=== PATIENT | female | born 1950 | race Caucasian/White ===

== ENCOUNTER 2016-11-15 06:46 | Inpatient (IN) | payer MEDICARE ==
--- NOTE | 2016-11-15 08:38 | RAD ---
HISTORY: Rales left lung base COMPARISONS: None VIEWS: 1: frontal portable view of the chest at 8:16 AM FINDINGS: LINES AND TUBES: None. CARDIOMEDIASTINAL SILHOUETTE: The cardiomediastinal silhouette is normal for portable technique. PLEURA: The costophrenic angles are sharp. No pleural abnormalities are noted. LUNG PARENCHYMA: The lungs are clear. ABDOMEN: The upper abdomen is clear. There is no subphrenic gas. BONES AND SOFT TISSUES: The patient is status post median sternotomy. IMPRESSION: NO ACTIVE CARDIOPULMONARY DISEASE.
[2016-11-15 08:56] LABS: Hematocrit 34 % (35-47); Hemoglobin 11.3 g/dl (12.0-16.0); Mean Corpuscular HGB Conc 33 g/dl (31-36); Mean Corpuscular Hemoglobin 29 pg (27-31); Mean Corpuscular Volume 86 fL (80-97); Mean Platelet Volume 7 um3 (7.4-10.4); Red Blood Count 3.95 10^6/ul (4.0-5.4); Red Cell Distribution Width 14 % (10.5-15); White Blood Count 16.6 10^3/ul (3.5-10.8)
[2016-11-15 09:10] LABS: Albumin 2.8 g/dL (3.2-5.2); Calcium 8.3 mg/dL (8.6-10.3); EGFR Non-African American 100.3 (>60); Globulin 3.4 g/dL (2-4); Potassium 4.1 mmol/L (3.5-5.0); Total Bilirubin 0.6 mg/dL (0.2-1.0); Total Protein 6.2 g/dL (6.4-8.9)
[2016-11-15 09:11] LABS: Albumin 2.8 g/dL (3.2-5.2); Direct Bilirubin 0.2 mg/dL (0.03-0.18); Globulin 3.4 g/dL (2-4); Indirect Bilirubin 0.4 mg/dL (0.3-1.0); Total Bilirubin 0.6 mg/dL (0.2-1.0); Total Protein 6.2 g/dL (6.4-8.9)
[2016-11-15] MEDS ORDERED: NS 0.9% 1000 ML* 1,000 ML IV SCH (09:30)
--- NOTE | 2016-11-15 09:33 | RAD ---
HISTORY: Altered mental status COMPARISONS: None TECHNIQUE: Multiple contiguous axial CT scans were obtained of the head without intravenous contrast. FINDINGS: HEMORRHAGE/INFARCT: There is no hemorrhage or acute infarct. MASSES/SHIFT: There is no mass or shift. EXTRA-AXIAL SPACES: There are no extra-axial fluid collections. SULCI AND VENTRICLES: The sulci and ventricles are normal in size and position for the patient's stated age. CEREBRUM: There are no focal parenchymal abnormalities. BRAINSTEM: There are no focal parenchymal abnormalities. CEREBELLUM: There are no focal parenchymal abnormalities. VESSELS: The vessels are grossly normal. PARANASAL SINUSES: The paranasal sinuses are clear. ORBITS: The orbits are unremarkable. BONES AND SOFT TISSUE: No bone or soft tissue abnormalities are noted. OTHER: None IMPRESSION: NO ACUTE INTRACRANIAL PATHOLOGY.
--- NOTE | 2016-11-15 10:05 | RAD ---
HISTORY: Reported history of fracture, trauma trauma COMPARISONS: None relevant available at the time of dictation VIEWS: 4, Frontal, lateral, and oblique views of the right elbow FINDINGS: BONE DENSITY: There is diffuse osteopenia. BONES: There is no displaced fracture. JOINTS: There is no arthropathy. There is a small joint effusion. ALIGNMENT: There is no dislocation. SOFT TISSUES: Unremarkable. OTHER FINDINGS: None. IMPRESSION: 1. OSTEOPENIA. 2. SMALL JOINT EFFUSION. 3. WHILE THERE IS NO DISPLACED FRACTURE THE PRESENCE OF AN EFFUSION MAY INDICATE A RADIOGRAPHICALLY OCCULT FRACTURE. IF SYMPTOMS PERSIST, RECOMMEND REPEAT IMAGING
--- NOTE | 2016-11-15 10:06 | RAD ---
HISTORY: History of fracture, trauma, right leg COMPARISONS: None VIEWS: 4, Frontal and lateral views of the right foreleg FINDINGS: BONE DENSITY: There is diffuse osteopenia. BONES: There is a nondisplaced oblique fracture of the proximal tibial metadiaphysis. There is no appreciable articular extension. JOINTS: There is no arthropathy. ALIGNMENT: There is no dislocation. SOFT TISSUES: Unremarkable. OTHER FINDINGS: None. IMPRESSION: OSTEOPENIA. NONDISPLACED FRACTURE OF THE PROXIMAL TIBIA
--- NOTE | 2016-11-15 10:06 | RAD ---
HISTORY: Trauma, history of fracture COMPARISONS: None VIEWS: 4, Frontal and lateral views of the left foreleg FINDINGS: BONE DENSITY: There is diffuse osteopenia. BONES: There is a multiply comminuted fracture of the proximal tibia with extension to the tibial plateau laterally. JOINTS: There is chondrocalcinosis with moderate osteophytosis of the left knee. ALIGNMENT: There is no dislocation. SOFT TISSUES: Unremarkable. OTHER FINDINGS: None. IMPRESSION: OSTEOPENIA WITH A MULTIPLY COMMINUTED FRACTURE OF THE PROXIMAL TIBIA WITH EXTENSION TO THE LATERAL TIBIAL PLATEAU
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
[2016-11-15] MEDS: Morphine INJ* 2 MG/ML 1 ML SYRINGE (TWO MG - NEW SYRINGE VERSION) IV PRN ×3 (12:55→19:19)
[2016-11-15] MEDS: Nicotine PATCH 14 MG/24 HR* PATCH TRANSDERM SCH (12:59)
[2016-11-15] MEDS: Metoprolol Tartrate TAB* 25 MG PO SCH ×2 (13:10→21:31)
[2016-11-15] MEDS: FLUoxetine CAP* 20 MG PO SCH (13:10)
[2016-11-15] MEDS: Lactobacillus Acidophilu (GG)* 1 CAP CAP PO SCH (13:10)
[2016-11-15] MEDS: Baclofen TAB* 10 MG PO PRN (17:47)
[2016-11-15] MEDS: Nicotine Patch Removal NOTE PATCH OFF SCH (21:32)
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
[2016-11-16] MEDS: Baclofen TAB* 10 MG PO PRN ×2 (03:16→09:08)
[2016-11-16] MEDS: Omeprazole CAP* 20 MG PO SCH (05:35)
[2016-11-16] MEDS: Morphine INJ* 2 MG/ML 1 ML SYRINGE (TWO MG - NEW SYRINGE VERSION) IV PRN ×2 (05:36→08:27)
[2016-11-16 09:55] LABS: Hematocrit 32 % (35-47); Hemoglobin 10.7 g/dl (12.0-16.0); Mean Corpuscular HGB Conc 34 g/dl (31-36); Mean Corpuscular Hemoglobin 29 pg (27-31); Mean Corpuscular Volume 86 fL (80-97); Mean Platelet Volume 7 um3 (7.4-10.4); Red Blood Count 3.71 10^6/ul (4.0-5.4); Red Cell Distribution Width 13 % (10.5-15); White Blood Count 14.9 10^3/ul (3.5-10.8)
[2016-11-16 10:08] LABS: BUN/Creatinine Ratio 21.6 (8-20); Calcium 8.1 mg/dL (8.6-10.3); EGFR African American 225.4 (>60); EGFR Non-African American 175.3 (>60); Potassium 3.6 mmol/L (3.5-5.0)
[2016-11-16] MEDS: Nicotine PATCH 14 MG/24 HR* PATCH TRANSDERM SCH (10:39)
[2016-11-16] MEDS: FLUoxetine CAP* 20 MG PO SCH (10:39)
[2016-11-16] MEDS: Lactobacillus Acidophilu (GG)* 1 CAP CAP PO SCH (10:39)
[2016-11-16] MEDS: Metoprolol Tartrate TAB* 25 MG PO SCH ×2 (10:39→20:22)
[2016-11-16] MEDS: Morphine INJ* 4 MG/ML 1 ML CARPUJECT IV PRN ×4 (10:43→22:08)
[2016-11-16] MEDS ORDERED: oxyCODONE TAB* 5 MG TAB PO PRN (13:30)
[2016-11-16] MEDS: Diazepam TAB(*) 5 MG PO PRN (16:15)
--- NOTE | 2016-11-16 16:56 | PN ---
Subjective Date of Service: 11/16/16 Interval History: This is a 66 yo female who was transferred from [facility] after sustaining a fall resulting in bilateral tibial plateau fractures. Patient has a h/o alcoholism, CAD, COPD and anxiety. Dr Rivera has consulted on the case and has recommended non-operative management. Today, patient is struggling with pain control. The majority of her pain appears to be related to spasm in her upper legs. No specific withdrawal symptoms. Objective Active Medications: Diazepam (Valium Tab(*)) 5 mg PO Q8H PRN PRN Reason: SPASMS Last Admin: 11/16/16 16:15 Dose: 5 mg Fluoxetine HCl (Prozac Cap*) 20 mg PO DAILY [facility] Last Admin: 11/16/16 10:39 Dose: 20 mg Lactobacillus Rhamnosus (Culturelle*) 1 cap PO DAILY [facility] Last Admin: 11/16/16 10:39 Dose: 1 cap Metoprolol Tartrate (Lopressor Tab*) 12.5 mg PO Q12HR [facility] Last Admin: 11/16/16 10:39 Dose: 12.5 mg Morphine Sulfate (Morphine Inj (Syringe)*) 4 mg IV Q2H PRN PRN Reason: PAIN Nicotine (Nicotine Patch 14 Mg/24 Hr*) 1 patch TRANSDERM DAILY [facility] Last Admin: 11/16/16 10:39 Dose: 1 patch Omeprazole (Prilosec Cap*) 20 mg PO 0600 [facility] Last Admin: 11/16/16 05:35 Dose: 20 mg Oxycodone HCl (Roxycodone Tab*) 10 mg PO Q6H PRN PRN Reason: PAIN Pharmacy Profile Note (Nicotine Patch Removal Note*) 1 note PATCH OFF BEDTIME [facility] Last Admin: 11/15/16 21:32 Dose: 1 note Vital Signs: Temp Pulse Resp BP Pulse Ox 98.1 F 82 16 146/76 91 11/16/16 15:09 11/16/16 15:09 11/16/16 16:15 11/16/16 15:09 11/16/16 15:09 Oxygen Devices in Use Now: None Appearance: Uncomfortable appearing 66 yo female. Occasionally moaning. Accompanied by her daughter. Respiratory: Symmetrical Chest Expansion and Respiratory Effort, Clear to Auscultation Cardiovascular: NL Sounds; No Murmurs; No JVD, RRR Abdominal: NL Sounds; No Tenderness; No Distention Extremities: No Edema, - - bilateral knee immobilizers in place Skin: No Rash or Ulcers Neurological: Alert and Oriented x 3 Result Diagrams: 11/16/16 09:32 11/16/16 09:32 Assess/Plan/Problems-Billing Assessment: This is a 66 yo female with alcoholis, CAD, COPD and anxiety who presents after an acute fall with bilateral tibial plateau fractures. - Patient Problems (1) Tibial plateau fracture Comment: Bilateral and non-displaced Appreciate ortho consult which recommends no surgical intervention Patient will need to be NWB x 6 weeks Focus on pain control, Baclofen appears to be incompletely effective for spasm relief, will trial Valium which may also provide some improvement in her high level of anxiety accompanying her pain (2) Alcoholism Comment: No obvious signs of withdrawal apart from anxiety Will utilize Valium for spasm control, may also be helpful for any mild withdrawal symptoms (3) CAD (coronary artery disease) Comment: Asx Cont med management (4) COPD (chronic obstructive pulmonary disease) Comment: No acute exacerbation (5) Anxiety Comment: Appears to be contributing to her pain Trial use of Valium (6) Full code status (7) DVT prophylaxis Comment: Start SQ Lovenox Status and Disposition: Inpatient. Patient will require placement while NWB. CM and SW involved in dc planning process
[2016-11-16] MEDS: Enoxaparin(*) 40 MG/0.4 ML SYR SUBCUT SCH (18:16)
[2016-11-16] MEDS: oxyCODONE TAB* 5 MG TAB PO PRN (21:13)
[2016-11-16] MEDS: Nicotine Patch Removal NOTE PATCH OFF SCH (21:27)
[2016-11-17] MEDS: Diazepam TAB(*) 5 MG PO PRN ×3 (02:28→23:09)
[2016-11-17] MEDS: oxyCODONE TAB* 5 MG TAB PO PRN ×4 (05:41→20:06)
[2016-11-17] MEDS: Omeprazole CAP* 20 MG PO SCH (05:41)
[2016-11-17] MEDS: FLUoxetine CAP* 20 MG PO SCH (08:02)
[2016-11-17] MEDS: Lactobacillus Acidophilu (GG)* 1 CAP CAP PO SCH (08:02)
[2016-11-17] MEDS: Morphine INJ* 4 MG/ML 1 ML CARPUJECT IV PRN (08:02)
[2016-11-17] MEDS: Nicotine PATCH 14 MG/24 HR* PATCH TRANSDERM SCH (08:03)
--- NOTE | 2016-11-17 11:25 | PN ---
Subjective Date of Service: 11/17/16 Interval History: Patient's pain control has improved significantly today. Spasms have improved with use of Valium, but are still occasionally present in the lower legs and feet now. Little pain at the fracture site. Objective Active Medications: Diazepam (Valium Tab(*)) 5 mg PO Q8H PRN PRN Reason: SPASMS Last Admin: 11/17/16 02:28 Dose: 5 mg Enoxaparin Sodium (Lovenox(*)) 40 mg SUBCUT Q24H [facility] Last Admin: 11/16/16 18:16 Dose: 40 mg Fluoxetine HCl (Prozac Cap*) 20 mg PO DAILY [facility] Last Admin: 11/17/16 08:02 Dose: 20 mg Lactobacillus Rhamnosus (Culturelle*) 1 cap PO DAILY [facility] Last Admin: 11/17/16 08:02 Dose: 1 cap Metoprolol Tartrate (Lopressor Tab*) 12.5 mg PO Q12HR [facility] Last Admin: 11/16/16 20:22 Dose: 12.5 mg Morphine Sulfate (Morphine Inj (Syringe)*) 4 mg IV Q2H PRN PRN Reason: PAIN Last Admin: 11/17/16 08:02 Dose: 4 mg Nicotine (Nicotine Patch 14 Mg/24 Hr*) 1 patch TRANSDERM DAILY [facility] Last Admin: 11/17/16 08:03 Dose: 1 patch Omeprazole (Prilosec Cap*) 20 mg PO 0600 [facility] Last Admin: 11/17/16 05:41 Dose: 20 mg Oxycodone HCl (Roxycodone Tab*) 10 mg PO Q4H PRN PRN Reason: PAIN Pharmacy Profile Note (Nicotine Patch Removal Note*) 1 note PATCH OFF BEDTIME [facility] Last Admin: 11/16/16 21:27 Dose: 1 note Vital Signs: Temp Pulse Resp BP Pulse Ox 98.1 F 83 15 115/59 93 11/17/16 07:40 11/17/16 07:40 11/17/16 08:54 11/17/16 07:40 11/17/16 07:40 Oxygen Devices in Use Now: None Appearance: Relatively well appearing 66 yo female accompanied by her daughter in NAD Respiratory: Symmetrical Chest Expansion and Respiratory Effort, Clear to Auscultation Cardiovascular: NL Sounds; No Murmurs; No JVD, RRR Extremities: No Edema Skin: No Rash or Ulcers Neurological: Alert and Oriented x 3 Result Diagrams: 11/16/16 09:32 11/16/16 09:32 Assess/Plan/Problems-Billing Assessment: This is a 66 yo female with alcoholis, CAD, COPD and anxiety who presents after an acute fall with bilateral tibial plateau fractures. - Patient Problems (1) Tibial plateau fracture Comment: Bilateral and non-displaced Appreciate ortho consult which recommends no surgical intervention Patient will need to be NWB x 6 weeks Focus on pain control which has improved with Valium for spasm relief and prn oxycodone with morphine for breakthrough Will decrease the interval between oxycodone doses in hopes of getting her controlled on oral medications only (2) Alcoholism Comment: No obvious signs of withdrawal apart from anxiety Cont Valium for spasm control, may also be helpful for any mild withdrawal symptoms (3) CAD (coronary artery disease) Comment: Asx Cont med management (4) COPD (chronic obstructive pulmonary disease) Comment: No acute exacerbation (5) Anxiety Comment: Improved (6) Full code status (7) DVT prophylaxis Comment: Start SQ Lovenox Status and Disposition: Inpatient. Patient will require placement while NWB. CM and SW involved in dc planning process
[2016-11-17] MEDS: Metoprolol Tartrate TAB* 25 MG PO SCH ×2 (11:52→20:06)
[2016-11-17 14:26] LABS: Albumin 2.5 g/dL (3.4-4.7); Gamma Globulin 1.6 g/dL (0.6-1.6); Total Protein(PEP) 6.1 g/dL (6.3 - 7.9)
[2016-11-17] MEDS: Enoxaparin(*) 40 MG/0.4 ML SYR SUBCUT SCH (18:11)
[2016-11-17] MEDS: Senna TAB PO SCH (20:05)
[2016-11-17] MEDS: Nicotine Patch Removal NOTE PATCH OFF SCH (21:57)
[2016-11-18] MEDS: oxyCODONE TAB* 5 MG TAB PO PRN ×4 (01:59→19:25)
[2016-11-18] MEDS: Omeprazole CAP* 20 MG PO SCH (06:00)
[2016-11-18] MEDS: Diazepam TAB(*) 5 MG PO PRN ×2 (08:03→16:03)
[2016-11-18] MEDS: Nicotine PATCH 14 MG/24 HR* PATCH TRANSDERM SCH (09:04)
[2016-11-18] MEDS: Metoprolol Tartrate TAB* 25 MG PO SCH ×2 (09:06→21:21)
[2016-11-18] MEDS: Lactobacillus Acidophilu (GG)* 1 CAP CAP PO SCH (09:06)
[2016-11-18] MEDS: FLUoxetine CAP* 20 MG PO SCH (09:06)
--- NOTE | 2016-11-18 14:37 | PN ---
Subjective Date of Service: 11/18/16 Interval History: Patient reports that she is still having some pain and spasm, but seems to be controlled on oral medications Objective Active Medications: Diazepam (Valium Tab(*)) 5 mg PO Q8H PRN PRN Reason: SPASMS Last Admin: 11/18/16 08:03 Dose: 5 mg Docusate Sodium (Colace Cap*) 100 mg PO BID [facility] Enoxaparin Sodium (Lovenox(*)) 40 mg SUBCUT Q24H [facility] Last Admin: 11/17/16 18:11 Dose: 40 mg Fluoxetine HCl (Prozac Cap*) 20 mg PO DAILY [facility] Last Admin: 11/18/16 09:06 Dose: 20 mg Lactobacillus Rhamnosus (Culturelle*) 1 cap PO DAILY [facility] Last Admin: 11/18/16 09:06 Dose: 1 cap Metoprolol Tartrate (Lopressor Tab*) 12.5 mg PO Q12HR [facility] Last Admin: 11/18/16 09:06 Dose: 12.5 mg Morphine Sulfate (Morphine Inj (Syringe)*) 4 mg IV Q2H PRN PRN Reason: PAIN Last Admin: 11/17/16 08:02 Dose: 4 mg Nicotine (Nicotine Patch 14 Mg/24 Hr*) 1 patch TRANSDERM DAILY [facility] Last Admin: 11/18/16 09:04 Dose: 1 patch Omeprazole (Prilosec Cap*) 20 mg PO 0600 [facility] Last Admin: 11/18/16 06:00 Dose: 20 mg Oxycodone HCl (Roxycodone Tab*) 10 mg PO Q4H PRN PRN Reason: PAIN Last Admin: 11/18/16 06:00 Dose: 10 mg Pharmacy Profile Note (Nicotine Patch Removal Note*) 1 note PATCH OFF BEDTIME [facility] Last Admin: 11/17/16 21:57 Dose: 1 note Polyethylene Glycol/Electrolytes (Miralax*) 17 gm PO DAILY [facility] Senna (Senokot Tab*) 1 tab PO BEDTIME [facility] Last Admin: 11/17/16 20:05 Dose: 1 tab Vital Signs: Temp Pulse Resp BP Pulse Ox 97.8 F 78 16 101/46 99 11/18/16 11:29 11/18/16 11:29 11/18/16 11:29 11/18/16 11:29 11/18/16 11:29 Oxygen Devices in Use Now: None Appearance: Well appearing in NAD Respiratory: Symmetrical Chest Expansion and Respiratory Effort, Clear to Auscultation Cardiovascular: NL Sounds; No Murmurs; No JVD, RRR Abdominal: NL Sounds; No Tenderness; No Distention Extremities: No Edema Skin: No Rash or Ulcers Neurological: Alert and Oriented x 3 Result Diagrams: 11/16/16 09:32 11/16/16 09:32 Assess/Plan/Problems-Billing Assessment: This is a 66 yo female with alcoholism, CAD, COPD and anxiety who presents after an acute fall with bilateral tibial plateau fractures. - Patient Problems (1) Tibial plateau fracture Comment: Bilateral and non-displaced Appreciate ortho consult which recommends no surgical intervention Patient will need to be NWB x 6 weeks Focus on pain control which has improved with Valium for spasm relief and prn oxycodone with morphine for breakthrough Patient has not required additional IV medication in the last 24h (2) Alcoholism Comment: No obvious signs of withdrawal apart from anxiety Cont Valium for spasm control, may also be helpful for any mild withdrawal symptoms (3) CAD (coronary artery disease) Comment: Asx Cont med management (4) COPD (chronic obstructive pulmonary disease) Comment: No acute exacerbation (5) Anxiety Comment: Improved (6) Full code status (7) DVT prophylaxis Comment: Start SQ Lovenox Status and Disposition: Inpatient. Patient will require placement while NWB. CM and SW involved in dc planning process
[2016-11-18] MEDS: Polyethylene Glycol 3350* 17 GM PACKET PO SCH (15:51)
[2016-11-18] MEDS: Enoxaparin(*) 40 MG/0.4 ML SYR SUBCUT SCH (18:07)
[2016-11-18] MEDS: Senna TAB PO SCH (21:21)
[2016-11-18] MEDS: Docusate CAP* 100 MG PO SCH (21:21)
[2016-11-18] MEDS: Nicotine Patch Removal NOTE PATCH OFF SCH (21:26)
[2016-11-19] MEDS: Omeprazole CAP* 20 MG PO SCH (06:11)
[2016-11-19] MEDS: oxyCODONE TAB* 5 MG TAB PO PRN ×3 (06:11→21:17)
[2016-11-19] MEDS: Nicotine PATCH 14 MG/24 HR* PATCH TRANSDERM SCH (08:56)
[2016-11-19] MEDS: Lactobacillus Acidophilu (GG)* 1 CAP CAP PO SCH (08:57)
[2016-11-19] MEDS: Docusate CAP* 100 MG PO SCH ×2 (08:57→21:17)
[2016-11-19] MEDS: Polyethylene Glycol 3350* 17 GM PACKET PO SCH (08:57)
[2016-11-19] MEDS: FLUoxetine CAP* 20 MG PO SCH (08:57)
[2016-11-19] MEDS: Metoprolol Tartrate TAB* 25 MG PO SCH ×2 (08:57→21:17)
--- NOTE | 2016-11-19 11:19 | PN ---
Progress Note - Progress Note Date of Service: 11/19/16 SOAP: Subjective: []Patient seen at bedside, has bilateral leg pain but feels that there has been a little bit of improvement. She is still awaiting a bed offer in the [facility]. Objective: [] Vital Signs Temp 98.2 F 11/19/16 07:22 Pulse 75 11/19/16 07:22 Resp 18 11/19/16 08:11 BP 137/59 11/19/16 07:22 Pulse Ox 99 11/19/16 07:22 Intake & Output 11/18/16 11/19/16 11/19/16 18:59 06:59 18:59 Intake Total 200 800 Output Total 500 150 Balance -300 650 Intake: Oral 200 800 Output: Urine 500 150 Other: Estimated Void Medium # Bowel Movements 0 Bilateral knee/proximal tibial edema knee immobilizers are donned +DF/PF bilateral ankles sensation and circulation intact distally calves non tender Assessment: []bilateral non displaced tibial plateau fractures Plan: []Continue with conservative management NWB bilateral LEs, knee immobilizers 4- 6 weeks
[2016-11-19] MEDS ORDERED: Bisacodyl SUPP* 10 MG SUPP PR PRN (11:30)
[2016-11-19] MEDS ORDERED: Magnesium CITRATE* 300 ML BTL PO ONE (11:30)
--- NOTE | 2016-11-19 11:38 | PN ---
Subjective Date of Service: 11/19/16 Objective Active Medications: Bisacodyl (Dulcolax Supp*) [address] DAILY PRN PRN Reason: CONSTIPATION Diazepam (Valium Tab(*)) 5 mg PO Q8H PRN PRN Reason: SPASMS Last Admin: 11/18/16 16:03 Dose: 5 mg Docusate Sodium (Colace Cap*) 100 mg PO BID [facility] Last Admin: 11/19/16 08:57 Dose: 100 mg Enoxaparin Sodium (Lovenox(*)) 40 mg SUBCUT Q24H [facility] Last Admin: 11/18/16 18:07 Dose: 40 mg Fluoxetine HCl (Prozac Cap*) 20 mg PO DAILY [facility] Last Admin: 11/19/16 08:57 Dose: 20 mg Lactobacillus Rhamnosus (Culturelle*) 1 cap PO DAILY [facility] Last Admin: 11/19/16 08:57 Dose: 1 cap Magnesium Citrate (Citrate Of Magnesia*) 150 ml PO ONCE ONE Stop: 11/19/16 11:31 Metoprolol Tartrate (Lopressor Tab*) 12.5 mg PO Q12HR [facility] Last Admin: 11/19/16 08:57 Dose: 12.5 mg Morphine Sulfate (Morphine Inj (Syringe)*) 4 mg IV Q2H PRN PRN Reason: PAIN Last Admin: 11/17/16 08:02 Dose: 4 mg Nicotine (Nicotine Patch 14 Mg/24 Hr*) 1 patch TRANSDERM DAILY [facility] Last Admin: 11/19/16 08:56 Dose: 1 patch Omeprazole (Prilosec Cap*) 20 mg PO 0600 [facility] Last Admin: 11/19/16 06:11 Dose: 20 mg Oxycodone HCl (Roxycodone Tab*) 10 mg PO Q4H PRN PRN Reason: PAIN Last Admin: 11/19/16 06:11 Dose: 10 mg Pharmacy Profile Note (Nicotine Patch Removal Note*) 1 note PATCH OFF BEDTIME [facility] Last Admin: 11/18/16 21:26 Dose: 1 note Polyethylene Glycol/Electrolytes (Miralax*) 17 gm PO DAILY [facility] Last Admin: 11/19/16 08:57 Dose: 17 gm Senna (Senokot Tab*) 1 tab PO BEDTIME [facility] Last Admin: 11/18/16 21:21 Dose: 1 tab Vital Signs 11/18/16 11/18/16 11/18/16 13:44 15:19 15:44 Temperature 98.7 F Pulse Rate 76 Respiratory 16 16 16 Rate Blood Pressure 115/52 (mmHg) O2 Sat by Pulse 99 Oximetry 11/18/16 11/18/16 11/18/16 16:03 18:03 19:20 Temperature Pulse Rate Respiratory 16 16 16 Rate Blood Pressure (mmHg) O2 Sat by Pulse Oximetry 11/18/16 11/18/16 11/18/16 19:23 19:25 21:21 Temperature 99.5 F Pulse Rate 97 85 Respiratory 17 18 Rate Blood Pressure 118/55 121/63 (mmHg) O2 Sat by Pulse 95 Oximetry 11/18/16 11/19/16 11/19/16 21:25 00:04 03:35 Temperature 98.0 F 98.3 F Pulse Rate 84 77 Respiratory 16 18 16 Rate Blood Pressure 118/66 132/57 (mmHg) O2 Sat by Pulse 95 97 Oximetry 11/19/16 11/19/16 11/19/16 06:11 07:22 08:00 Temperature 98.2 F Pulse Rate 75 Respiratory 18 16 16 Rate Blood Pressure 137/59 (mmHg) O2 Sat by Pulse 99 Oximetry 11/19/16 08:11 Temperature Pulse Rate Respiratory 18 Rate Blood Pressure (mmHg) O2 Sat by Pulse Oximetry Oxygen Devices in Use Now: None Result Diagrams: 11/16/16 09:32 11/16/16 09:32 Assess/Plan/Problems-Billing Assessment: This is a 66 yo female with alcoholism, CAD, COPD and anxiety who presents after an acute fall with bilateral tibial plateau fractures. - Patient Problems (1) Tibial plateau fracture Comment: Bilateral and non-displaced Appreciate ortho consult which recommends no surgical intervention Patient will need to be NWB x 6 weeks Focus on pain control which has improved with Valium for spasm relief and prn oxycodone with morphine for breakthrough Patient has not required additional IV medication in the last 24h (2) Alcoholism Comment: No obvious signs of withdrawal apart from anxiety Cont Valium for spasm control, may also be helpful for any mild withdrawal symptoms (3) CAD (coronary artery disease) Comment: Asx Cont med management (4) COPD (chronic obstructive pulmonary disease) Comment: No acute exacerbation (5) Anxiety Comment: Improved (6) Full code status (7) DVT prophylaxis Comment: Start SQ Lovenox Status and Disposition: Inpatient. Patient will require placement while NWB. CM and SW involved in dc planning process
--- NOTE | 2016-11-19 12:57 | DS ---
DATE OF ADMISSION: 11/15/2016. DATE OF DISCHARGE: 11/19/2016. PRIMARY CARE PROVIDER: Out of the area. CONSULTING ORTHOPEDIC SURGEON: Dr. Rivera. DISCHARGING PROVIDER: EMILY Arreaga. SUPERVISING PHYSICIAN: Dr. Fabiola Gordillo * (dictated by EMILY Arreaga). PRIMARY DISCHARGE DIAGNOSIS: Bilateral tibial plateau fractures. SECONDARY DISCHARGE DIAGNOSES: 1. Alcoholism - mild signs of withdrawal during her hospital stay, but nothing significant clinically. 2. Coronary artery disease without symptoms. 3. COPD without acute exacerbation. 4. Anxiety. DISCHARGE MEDICATIONS: 1. Dulcolax suppository 10 mg per rectum daily as needed for constipation. 2. Valium 5 mg p.o. q.8 hours as needed for spasm relief. 3. Docusate 100 mg p.o. twice daily. 4. Prozac 60 mg p.o. daily. 5. Meclizine 25 mg p.o. at bedtime. 6. Metoprolol Tartrate 25 mg p.o. daily. 7. Nicotine patch 14 mg placed transdermally daily. 8. MiraLax 17 gm p.o. daily. 9. Probiotic one capsule p.o. daily. 10. Senna one tablet p.o. at bedtime. 11. Hydroxyzine 25 mg p.o. t.i.d. as needed for anxiety. 12. Oxycodone 10 mg p.o. q.4 hours as needed for pain. Medication changes: 1. Prn Dulcolax suppository. 2. Prn valium. 3. Scheduled Docusate. 4. Nicotine patch. 5. MiraLax. 6. Prn Senna. 7. Prn Oxycodone. HOSPITAL IMAGIN. CT of the brain shows no acute pathology. 2. Chest x-ray shows no acute pathology. 3. Elbow x-ray of the right shows osteopenia and a small joint effusion, no obvious fracture. 4. Left lower leg x-ray shows osteopenia with multiple comminuted fracture of the proximal tibia with extension to the lateral tibial plateau. 5. Right lower extremity x-ray shows osteopenia with a nondisplaced fracture of the proximal tibia. 6. EKG shows a sinus rhythm with some mild ST depression in V1 through V3. No old EKG available for comparison. HOSPITAL COURSE: This is a 66-year-old female with known coronary artery disease, mild COPD, alcoholism, and anxiety who presented to the emergency department at [facility] after sustaining an injury while attending a wedding. This patient resides in the [facility] and was just visiting the region. She reportedly was being pushed in a wheelchair when the wheelchair suddenly collapsed and she fell forward resulting in bilateral proximal tibial fractures. The patient was subsequently transferred to our facility for further orthopedic evaluation. The patient was evaluated by Dr. Rivera, Orthopedic Surgery, who felt that no surgical intervention was indicated as her fractures were nondisplaced, but the patient does require nonweightbearing status for at least four to six weeks. The patient's pain was initially difficult to control, but eventually was manageable with oral Oxycodone and valium for additional spasm relief. The patient does have a rather significant alcohol history reporting between a [id number] to two liters of wine daily. She was initially quite anxious and mildly tremulous. She was started on valium for both spasm and withdrawal support. She did not develop any significant withdrawal symptoms throughout the remainder of her hospital stay. DISPOSITION AND FOLLOW-UP PLAN: The patient is being discharged to [facility]. The patient's daughter and herself desire being closer to home, which again is in the [facility]. The patient will require repeat imaging of both lower legs in approximately two weeks with an orthopedic surgery follow-up. The patient does not plan to return to the [facility] for orthopedic surgery care and will need to establish with somebody in the [facility]. She is to remain nonweightbearing for four to six weeks or as instructed by new orthopedic surgeon. EMILY ARREAGA [id number]/[facility] #: [id number] JUAN M
[2016-11-19] MEDS ORDERED: Sodium Phosphate ADULT ENEMA* 118 ml bottle PR ONE (15:05)
[2016-11-19 16:56] LABS: Albumin 17 %; Gamma Globulin 24 %
[2016-11-19] MEDS: Enoxaparin(*) 40 MG/0.4 ML SYR SUBCUT SCH (17:38)
--- NOTE | 2016-11-19 17:38 | PN ---
Hospitalist Progress Note Discharge was prepared, but she was unable to leave due to problem with insurance authorization. Pending peer to peer discussion with medical parasitologist. Continuing current care.
[2016-11-19] MEDS: Senna TAB PO SCH (21:17)
[2016-11-19] MEDS: Nicotine Patch Removal NOTE PATCH OFF SCH (23:10)
[2016-11-20] MEDS: oxyCODONE TAB* 5 MG TAB PO PRN ×3 (03:55→20:48)
[2016-11-20] MEDS: Omeprazole CAP* 20 MG PO SCH (05:48)
[2016-11-20] MEDS: Polyethylene Glycol 3350* 17 GM PACKET PO SCH (09:53)
[2016-11-20] MEDS: Docusate CAP* 100 MG PO SCH ×2 (09:54→20:48)
[2016-11-20] MEDS: Lactobacillus Acidophilu (GG)* 1 CAP CAP PO SCH (09:54)
[2016-11-20] MEDS: FLUoxetine CAP* 20 MG PO SCH (09:54)
[2016-11-20] MEDS: Nicotine PATCH 14 MG/24 HR* PATCH TRANSDERM SCH (09:54)
[2016-11-20] MEDS: Metoprolol Tartrate TAB* 25 MG PO SCH ×2 (09:54→20:48)
--- NOTE | 2016-11-20 15:18 | PN ---
Subjective Date of Service: 11/20/16 Interval History: Discharge held up due to problems with insurance authorization. Patient continues to deny significant concerns. Pain is adequately controlled. Objective Active Medications: Bisacodyl (Dulcolax Supp*) 10 mg [facility] DAILY PRN PRN Reason: CONSTIPATION Last Admin: 11/19/16 11:41 Dose: 10 mg Diazepam (Valium Tab(*)) 5 mg PO Q8H PRN PRN Reason: SPASMS Last Admin: 11/18/16 16:03 Dose: 5 mg Docusate Sodium (Colace Cap*) 100 mg PO BID [facility] Last Admin: 11/20/16 09:54 Dose: 100 mg Enoxaparin Sodium (Lovenox(*)) 40 mg SUBCUT Q24H [facility] Last Admin: 11/19/16 17:38 Dose: 40 mg Fluoxetine HCl (Prozac Cap*) 20 mg PO DAILY [facility] Last Admin: 11/20/16 09:54 Dose: 20 mg Lactobacillus Rhamnosus (Culturelle*) 1 cap PO DAILY [facility] Last Admin: 11/20/16 09:54 Dose: 1 cap Metoprolol Tartrate (Lopressor Tab*) 12.5 mg PO Q12HR [facility] Last Admin: 11/20/16 09:54 Dose: 12.5 mg Morphine Sulfate (Morphine Inj (Syringe)*) 4 mg IV Q2H PRN PRN Reason: PAIN Last Admin: 11/17/16 08:02 Dose: 4 mg Nicotine (Nicotine Patch 14 Mg/24 Hr*) 1 patch TRANSDERM DAILY [facility] Last Admin: 11/20/16 09:54 Dose: 1 patch Omeprazole (Prilosec Cap*) 20 mg PO 0600 [facility] Last Admin: 11/20/16 05:48 Dose: 20 mg Oxycodone HCl (Roxycodone Tab*) 10 mg PO Q4H PRN PRN Reason: PAIN Last Admin: 11/20/16 09:58 Dose: 10 mg Pharmacy Profile Note (Nicotine Patch Removal Note*) 1 note PATCH OFF BEDTIME [facility] Last Admin: 11/19/16 23:10 Dose: 1 note Polyethylene Glycol/Electrolytes (Miralax*) 17 gm PO DAILY [facility] Last Admin: 11/20/16 09:53 Dose: 17 gm Senna (Senokot Tab*) 1 tab PO BEDTIME [facility] Last Admin: 11/19/16 21:17 Dose: 1 tab Vital Signs: Temp Pulse Resp BP Pulse Ox 97.8 F 67 18 111/50 94 11/20/16 07:22 11/20/16 07:22 11/20/16 09:58 11/20/16 07:22 11/20/16 07:22 Oxygen Devices in Use Now: None Appearance: Well appearing, slightly sedated. In NAD Respiratory: Symmetrical Chest Expansion and Respiratory Effort, Clear to Auscultation Cardiovascular: NL Sounds; No Murmurs; No JVD, RRR Abdominal: NL Sounds; No Tenderness; No Distention Extremities: No Edema Neurological: Alert and Oriented x 3 Result Diagrams: 11/16/16 09:32 11/16/16 09:32 Assess/Plan/Problems-Billing Assessment: This is a 66 yo female with alcoholism, CAD, COPD and anxiety who presents after an acute fall with bilateral tibial plateau fractures. - Patient Problems (1) Tibial plateau fracture Comment: Bilateral and non-displaced Appreciate ortho consult which recommends no surgical intervention Patient will need to be NWB x 6 weeks Focus on pain control which has improved with Valium for spasm relief and prn oxycodone with morphine for breakthrough Patient has not required additional IV medication for the last couple of days (2) Alcoholism Comment: No obvious signs of withdrawal apart from anxiety Cont Valium for spasm control, may also be helpful for any mild withdrawal symptoms (3) CAD (coronary artery disease) Comment: Asx Cont med management (4) COPD (chronic obstructive pulmonary disease) Comment: No acute exacerbation (5) Anxiety Comment: Improved (6) Full code status (7) DVT prophylaxis Comment: Start SQ Lovenox Status and Disposition: Inpatient. Patient will require placement while NWB. CM and SW involved in dc planning process, pending insurance auth
[2016-11-20] MEDS: Enoxaparin(*) 40 MG/0.4 ML SYR SUBCUT SCH (17:48)
[2016-11-20] MEDS: Senna TAB PO SCH (20:48)
[2016-11-20] MEDS: Nicotine Patch Removal NOTE PATCH OFF SCH (20:49)
[2016-11-21] MEDS: Omeprazole CAP* 20 MG PO SCH (05:11)
[2016-11-21] MEDS: oxyCODONE TAB* 5 MG TAB PO PRN ×5 (05:11→23:34)
--- NOTE | 2016-11-21 08:55 | PN ---
Subjective Date of Service: 11/21/16 Interval History: Patient seen this morning. Reports some leg pain, seems to be mostly controlled with PO pain medications. Denies chest pain, SOB. Family History: Unchanged from Admission Social History: Unchanged from Admission Past Medical History: Unchanged from Admission Objective Active Medications: Bisacodyl (Dulcolax Supp*) 10 mg [place] DAILY PRN Diazepam (Valium Tab(*)) 5 mg PO Q8H PRN Docusate Sodium (Colace Cap*) 100 mg PO BID [facility] Enoxaparin Sodium (Lovenox(*)) 40 mg SUBCUT Q24H [facility] Fluoxetine HCl (Prozac Cap*) 20 mg PO DAILY [facility] Lactobacillus Rhamnosus (Culturelle*) 1 cap PO DAILY [facility] Metoprolol Tartrate (Lopressor Tab*) 12.5 mg PO Q12HR [facility] Morphine Sulfate (Morphine Inj (Syringe)*) 4 mg IV Q2H PRN Nicotine (Nicotine Patch 14 Mg/24 Hr*) 1 patch TRANSDERM DAILY [facility] Omeprazole (Prilosec Cap*) 20 mg PO 0600 [facility] Oxycodone HCl (Roxycodone Tab*) 10 mg PO Q4H PRN Pharmacy Profile Note (Nicotine Patch Removal Note*) 1 note PATCH OFF BEDTIME [facility] Polyethylene Glycol/Electrolytes (Miralax*) 17 gm PO DAILY [facility] Senna (Senokot Tab*) 1 tab PO BEDTIME [facility] Vital Signs 11/20/16 11/20/16 11/20/16 09:58 11:20 16:00 Temperature 98.1 F 97.8 F Pulse Rate 66 67 Respiratory 18 16 16 Rate Blood Pressure 125/48 119/53 (mmHg) O2 Sat by Pulse 98 100 Oximetry 11/20/16 11/21/16 11/21/16 23:15 00:39 03:25 Temperature 98.0 F 98.6 F Pulse Rate 67 67 Respiratory 18 16 16 Rate Blood Pressure 122/56 135/57 (mmHg) O2 Sat by Pulse 97 97 Oximetry 11/21/16 11/21/16 05:11 07:26 Temperature 97.9 F Pulse Rate 70 Respiratory 18 17 Rate Blood Pressure 126/57 (mmHg) O2 Sat by Pulse 94 Oximetry Oxygen Devices in Use Now: None Appearance: Elderly, F, laying in bed in NAD Eyes: No Scleral Icterus Ears/Nose/Mouth/Throat: Mucous Membranes Moist Neck: NL Appearance and Movements; NL JVP Respiratory: Symmetrical Chest Expansion and Respiratory Effort, Clear to Auscultation Cardiovascular: NL Sounds; No Murmurs; No JVD, RRR Abdominal: NL Sounds; No Tenderness; No Distention Lymphatic: No Cervical Adenopathy Extremities: No Edema, - - B/L knee braces in place Skin: No Rash or Ulcers Neurological: Alert and Oriented x 3 Result Diagrams: 11/16/16 09:32 11/16/16 09:32 Assess/Plan/Problems-Billing Assessment: This is a 66 yo female with alcoholism, CAD, COPD and anxiety who presents after an acute fall with bilateral tibial plateau fractures. - Patient Problems (1) Tibial plateau fracture Current Visit: Yes Comment: Bilateral and non-displaced Appreciate ortho consult which recommends no surgical intervention Patient will need to be NWB x 6 weeks Focus on pain control which has improved with Valium for spasm relief and prn oxycodone (2) Alcoholism Current Visit: Yes Comment: No obvious signs of withdrawal apart from anxiety Cont Valium for spasm control, may also be helpful for any mild withdrawal symptoms (3) Anxiety Current Visit: Yes Comment: Improved (4) CAD (coronary artery disease) Current Visit: Yes Comment: Asx Cont med management (5) COPD (chronic obstructive pulmonary disease) Current Visit: Yes Comment: No acute exacerbation (6) DVT prophylaxis Current Visit: Yes Comment: SQ Lovenox (7) Full code status Current Visit: Yes Status and Disposition: Inpatient. Patient will require placement while NWB. CM and SW involved in dc planning process, pending insurance auth
[2016-11-21] MEDS: Polyethylene Glycol 3350* 17 GM PACKET PO SCH (09:25)
[2016-11-21] MEDS: Docusate CAP* 100 MG PO SCH ×2 (09:27→20:58)
[2016-11-21] MEDS: Lactobacillus Acidophilu (GG)* 1 CAP CAP PO SCH (09:27)
[2016-11-21] MEDS: FLUoxetine CAP* 20 MG PO SCH (09:27)
[2016-11-21] MEDS: Metoprolol Tartrate TAB* 25 MG PO SCH ×2 (09:28→20:58)
[2016-11-21] MEDS: Nicotine PATCH 14 MG/24 HR* PATCH TRANSDERM SCH (09:29)
[2016-11-21] MEDS: Enoxaparin(*) 40 MG/0.4 ML SYR SUBCUT SCH (19:30)
[2016-11-21] MEDS: Senna TAB PO SCH ×2 (20:57→21:01)
[2016-11-21] MEDS: Nicotine Patch Removal NOTE PATCH OFF SCH (21:01)
[2016-11-22] MEDS: oxyCODONE TAB* 5 MG TAB PO PRN ×4 (03:46→21:30)
[2016-11-22] MEDS: Omeprazole CAP* 20 MG PO SCH (05:38)
--- NOTE | 2016-11-22 09:43 | PN ---
Subjective Date of Service: 11/22/16 Interval History: Patient seen this morning. Had some loose stool. Leg pain controlled with oral meds. Family History: Unchanged from Admission Social History: Unchanged from Admission Past Medical History: Unchanged from Admission Objective Active Medications: Bisacodyl (Dulcolax Supp*) 10 mg [facility] DAILY PRN Diazepam (Valium Tab(*)) 5 mg PO Q8H PRN Docusate Sodium (Colace Cap*) 100 mg PO BID [facility] Enoxaparin Sodium (Lovenox(*)) 40 mg SUBCUT Q24H [facility] Fluoxetine HCl (Prozac Cap*) 20 mg PO DAILY [facility] Lactobacillus Rhamnosus (Culturelle*) 1 cap PO DAILY [facility] Metoprolol Tartrate (Lopressor Tab*) 12.5 mg PO Q12HR [facility] Nicotine (Nicotine Patch 14 Mg/24 Hr*) 1 patch TRANSDERM DAILY [facility] Omeprazole (Prilosec Cap*) 20 mg PO 0600 [facility] Oxycodone HCl (Roxycodone Tab*) 10 mg PO Q4H PRN Pharmacy Profile Note (Nicotine Patch Removal Note*) 1 note PATCH OFF BEDTIME [facility] Polyethylene Glycol/Electrolytes (Miralax*) 17 gm PO DAILY [facility] Senna (Senokot Tab*) 1 tab PO BEDTIME [facility] Vital Signs 11/21/16 11/21/16 11/21/16 11:28 11:39 14:32 Temperature 98.1 F Pulse Rate 70 Respiratory 16 17 16 Rate Blood Pressure 132/58 (mmHg) O2 Sat by Pulse 98 Oximetry 11/21/16 11/21/16 11/21/16 15:36 16:32 19:19 Temperature 98.2 F 98.5 F Pulse Rate 69 73 Respiratory 20 16 16 Rate Blood Pressure 136/66 128/49 (mmHg) O2 Sat by Pulse 95 94 Oximetry 11/21/16 11/21/16 11/21/16 19:29 19:58 21:29 Temperature Pulse Rate Respiratory 16 16 17 Rate Blood Pressure (mmHg) O2 Sat by Pulse Oximetry 11/21/16 11/21/16 11/22/16 23:31 23:34 01:34 Temperature 97.9 F Pulse Rate 74 Respiratory 18 16 17 Rate Blood Pressure 131/58 (mmHg) O2 Sat by Pulse 96 Oximetry 11/22/16 11/22/16 11/22/16 03:46 04:02 05:46 Temperature 98.0 F Pulse Rate 71 Respiratory 16 16 16 Rate Blood Pressure 140/63 (mmHg) O2 Sat by Pulse 95 Oximetry 11/22/16 07:24 Temperature 98.2 F Pulse Rate 71 Respiratory 16 Rate Blood Pressure 137/59 (mmHg) O2 Sat by Pulse 95 Oximetry Oxygen Devices in Use Now: None Appearance: Elderly, F, laying in bed in NAD Eyes: No Scleral Icterus Ears/Nose/Mouth/Throat: Mucous Membranes Moist Neck: NL Appearance and Movements; NL JVP Respiratory: Symmetrical Chest Expansion and Respiratory Effort, Clear to Auscultation Cardiovascular: NL Sounds; No Murmurs; No JVD, RRR Abdominal: NL Sounds; No Tenderness; No Distention Lymphatic: No Cervical Adenopathy Extremities: No Edema, - - B/L knee braces in place Skin: No Rash or Ulcers Neurological: - - Alert, oriented, no focal deficits Result Diagrams: 11/16/16 09:32 11/16/16 09:32 Assess/Plan/Problems-Billing Assessment: This is a 66 yo female with alcoholism, CAD, COPD and anxiety who presents after an acute fall with bilateral tibial plateau fractures. - Patient Problems (1) Tibial plateau fracture Current Visit: Yes Comment: Bilateral and non-displaced Appreciate ortho consult which recommends no surgical intervention Patient will need to be NWB x 6 weeks Focus on pain control which has improved with Valium for spasm relief and prn oxycodone (2) Alcoholism Current Visit: Yes Comment: No obvious signs of withdrawal apart from anxiety Cont Valium for spasm control, may also be helpful for any mild withdrawal symptoms (3) Anxiety Current Visit: Yes Comment: Stable (4) CAD (coronary artery disease) Current Visit: Yes Comment: Asx Cont med management (5) COPD (chronic obstructive pulmonary disease) Current Visit: Yes Comment: No acute exacerbation (6) DVT prophylaxis Current Visit: Yes Comment: SQ Lovenox (7) Full code status Current Visit: Yes Status and Disposition: Inpatient. Patient will require placement while NWB. CM and SW involved in dc planning process, pending insurance auth
[2016-11-22] MEDS: Polyethylene Glycol 3350* 17 GM PACKET PO SCH (10:16)
[2016-11-22] MEDS: Docusate CAP* 100 MG PO SCH ×2 (10:20→20:40)
[2016-11-22] MEDS: Metoprolol Tartrate TAB* 25 MG PO SCH ×2 (10:22→20:28)
[2016-11-22] MEDS: FLUoxetine CAP* 20 MG PO SCH (10:23)
[2016-11-22] MEDS: Lactobacillus Acidophilu (GG)* 1 CAP CAP PO SCH (10:23)
[2016-11-22] MEDS: Nicotine PATCH 14 MG/24 HR* PATCH TRANSDERM SCH (10:23)
[2016-11-22] MEDS: Enoxaparin(*) 40 MG/0.4 ML SYR SUBCUT SCH (17:41)
[2016-11-22] MEDS: Senna TAB PO SCH (20:40)
[2016-11-22] MEDS: Nicotine Patch Removal NOTE PATCH OFF SCH (20:40)
[2016-11-23] MEDS: oxyCODONE TAB* 5 MG TAB PO PRN ×3 (05:55→15:18)
[2016-11-23] MEDS: Omeprazole CAP* 20 MG PO SCH (05:55)
[2016-11-23 06:47] LABS: Hematocrit 28 % (35-47); Hemoglobin 9.6 g/dl (12.0-16.0); Mean Platelet Volume 7 um3 (7.4-10.4)
[2016-11-23 07:32] LABS: EGFR African American 189.5 (>60); EGFR Non-African American 147.4 (>60)
[2016-11-23] MEDS: Polyethylene Glycol 3350* 17 GM PACKET PO SCH (08:23)
[2016-11-23] MEDS: Docusate CAP* 100 MG PO SCH (08:23)
[2016-11-23] MEDS: Nicotine PATCH 14 MG/24 HR* PATCH TRANSDERM SCH (09:17)
[2016-11-23] MEDS: Metoprolol Tartrate TAB* 25 MG PO SCH (09:19)
[2016-11-23] MEDS: Lactobacillus Acidophilu (GG)* 1 CAP CAP PO SCH (09:19)
[2016-11-23] MEDS: FLUoxetine CAP* 20 MG PO SCH (09:19)
--- NOTE | 2016-11-23 10:39 | PN ---
Subjective Date of Service: 11/23/16 Interval History: Patient seen this morning. No new complaints. Still having leg pain controlled with medications. Occasionally will feel some numbness/tingling in the legs that improves with repositioning, none now. Diarrhea resolved. Family History: Unchanged from Admission Social History: Unchanged from Admission Past Medical History: Unchanged from Admission Objective Active Medications: Bisacodyl (Dulcolax Supp*) 10 mg OH DAILY PRN Diazepam (Valium Tab(*)) 5 mg PO Q8H PRN Docusate Sodium (Colace Cap*) 100 mg PO BID ANABELLE Enoxaparin Sodium (Lovenox(*)) 40 mg SUBCUT Q24H ANABELLE Fluoxetine HCl (Prozac Cap*) 20 mg PO DAILY ANABELLE Lactobacillus Rhamnosus (Culturelle*) 1 cap PO DAILY ANABELLE Metoprolol Tartrate (Lopressor Tab*) 12.5 mg PO Q12HR ANABELLE Nicotine (Nicotine Patch 14 Mg/24 Hr*) 1 patch TRANSDERM DAILY ANABELLE Omeprazole (Prilosec Cap*) 20 mg PO 0600 ANABELLE Oxycodone HCl (Roxycodone Tab*) 10 mg PO Q4H PRN Pharmacy Profile Note (Nicotine Patch Removal Note*) 1 note PATCH OFF BEDTIME ANABELLE Polyethylene Glycol/Electrolytes (Miralax*) 17 gm PO DAILY ANABELLE Senna (Senokot Tab*) 1 tab PO BEDTIME ANABELLE Vital Signs 11/22/16 11/22/16 11/22/16 12:01 12:21 15:22 Temperature 98.3 F 97.7 F Pulse Rate 70 68 Respiratory 16 18 16 Rate Blood Pressure 124/61 139/64 (mmHg) O2 Sat by Pulse 96 95 Oximetry 11/23/16 11/23/16 07:08 07:55 Temperature 98.2 F Pulse Rate 74 Respiratory 15 16 Rate Blood Pressure 127/61 (mmHg) O2 Sat by Pulse 96 Oximetry Oxygen Devices in Use Now: None Appearance: Elderly, F, laying in bed in NAD Eyes: No Scleral Icterus Ears/Nose/Mouth/Throat: Mucous Membranes Moist Neck: NL Appearance and Movements; NL JVP Respiratory: Symmetrical Chest Expansion and Respiratory Effort, Clear to Auscultation Cardiovascular: NL Sounds; No Murmurs; No JVD, RRR Abdominal: NL Sounds; No Tenderness; No Distention Lymphatic: No Cervical Adenopathy Extremities: - - no LE edema, knee braces in place Skin: No Rash or Ulcers Neurological: Alert and Oriented x 3, - - Sensation intact and symmetric in LEs Result Diagrams: 11/23/16 06:29 11/23/16 06:29 Assess/Plan/Problems-Billing Assessment: This is a 66 yo female with alcoholism, CAD, COPD and anxiety who presents after an acute fall with bilateral tibial plateau fractures. - Patient Problems (1) Tibial plateau fracture Current Visit: Yes Comment: Bilateral and non-displaced Appreciate ortho consult which recommends no surgical intervention Patient will need to be NWB x 6 weeks Focus on pain control which has improved with Valium for spasm relief and prn oxycodone (2) Alcoholism Current Visit: Yes Comment: No obvious signs of withdrawal apart from anxiety Cont Valium for spasm control, may also be helpful for any mild withdrawal symptoms (3) Anxiety Current Visit: Yes Comment: Stable (4) CAD (coronary artery disease) Current Visit: Yes Comment: Asx Cont med management (5) COPD (chronic obstructive pulmonary disease) Current Visit: Yes Comment: No acute exacerbation (6) DVT prophylaxis Current Visit: Yes Comment: SQ Lovenox (7) Full code status Current Visit: Yes Status and Disposition: Inpatient. Patient will require placement while NWB. CM and SW involved in dc planning process, pending insurance auth
[2016-11-23] MEDS ORDERED: oxyCODONE TAB* 5 MG TAB PO ONE (15:31)
[2016-11-23] MEDS ORDERED: Morphine INJ* 4 MG/ML 1 ML CARPUJECT IV ONE (15:54)
[2016-11-23 17:07] VITALS: BP 150/64
--- NOTE | 2016-11-24 06:07 | DS ---
ADDENDUM TO DISCHARGE SUMMARY: Initial discharge summary was completed on 11/19/16. DATE OF ADMISSION: DATE OF DISCHARGE: 11/23/16 ADDENDUM: Due to insurance reasons the patient remained in the hospital and was monitored until her rehab stay was approved. This occurred on 11/23/16. The patient had no significant events over this time and medications did not change. She will be discharged to [facility] in [place]. [id number]/[facility] #: [id number] JUAN M
== END 2016-11-23 16:10 | DRG 563 ==
LOC: SSU 06:46
PROVIDERS: ADMIT Hospitalist; ATTEND Hospitalist
DX: S82.145A Nondisplaced bicondylar fracture of left tibia, initial encounter for closed fracture (principal); J44.9 Chronic obstructive pulmonary disease, unspecified; E87.1 Hypo-osmolality and hyponatremia; I11.9 Hypertensive heart disease without heart failure; F10.239 Alcohol dependence with withdrawal, unspecified; S82.144A Nondisplaced bicondylar fracture of right tibia, initial encounter for closed fracture; I25.10 Atherosclerotic heart disease of native coronary artery without angina pectoris; F41.9 Anxiety disorder, unspecified; I73.9 Peripheral vascular disease, unspecified; F17.210 Nicotine dependence, cigarettes, uncomplicated; M85.80 Other specified disorders of bone density and structure, unspecified site; W05.0XXA Fall from non-moving wheelchair, initial encounter; Y92.9 Unspecified place or not applicable; Z95.1 Presence of aortocoronary bypass graft; I25.2 Old myocardial infarction; Z82.49 Family history of ischemic heart disease and other diseases of the circulatory system; Z88.1 Allergy status to other antibiotic agents; Z88.5 Allergy status to narcotic agent; Z79.899 Other long term (current) drug therapy; M25.521 Pain in right elbow
CPT/HCPCS: 36415; 70450; 71010; 80048; 80053; 80076; 82565; 83605; 84155; 84156; 84165; 84166; 84484; 84520; 85014; 85018; 85025; 85049; 85610; 86850; 86900; 86901; 93005; A9270-GY; J1650; J2270